=== PATIENT | male | born 1955 | race Caucasian/White ===

== ENCOUNTER 2021-04-07 16:08 | Emergency (ER) | payer MEDICARE ==
[~2021-04-07] VITALS: Ht 177.8 cm; Wt 96.2 kg
--- NOTE | ~2021-04-07 | EMS ---
[address] [address] EMS Patient Care Report Name: GIA SUGGS Room #: DEP MARCELLA Quezada#: [id number] Admission: 04/07/21 Attend Phys: Discharge: 04/07/21 Date of : 51 Report #: [id number] THIS REPORT FOR: //name// Report Transmitted: 04/10/2021 10:26 EMS Care Summary [place], [place]/[facility] Incident [id number] @ 04/07/2021 15:29 Incident Location 1 [facility] Patient GIA SUGGS Male, 65 Years 1955 Patient Address [address] [place] [address] Patient History Hypertension (HTN),Pacemaker/AICD, Patient Allergies No known allergies, Patient Medications None Reported, Chief Complaint syncoble episode Disposition Transported [place] Dispatch Reason Cardiac Arrest/ Transported To [facility] Narrative M39 dispatched to the indicated address for a cardiac arrest. M39 arrived on scene to find a 65 year old male lying down on a stretcher. Pt is CA&Ox4 with ABC intact and a GCs of 15. Medical team states that pt was very out of it and initially had no radial pulses. Pt is CA&Ox4 with ABC intact and a GCS of 15. [address] [address] EMS Patient Care Report Name: GIA SUGGS Room #: DEP [facility]#: [id number] Admission: 04/07/21 Attend Phys: Discharge: 04/07/21 Date of : 51 Report #: [id number] Pt appears to be pale and diaphoretic. Pt denies any chest pain or SOB. Pt states that he just had a pacemaker put in Thursday. Pt is assisted to EMS stretcher and secured. V/s are obtained as recorded and monitored throughout transport. Pt and stretcher are secured in the ambulance. 12 lead is preformed and shows pt to be in a sinus rhythm. IV access is established in pt left hand via 20 gauge catheter. Pt states that he would like to go to [facility]. Pt is explained the risks of not going to the closest appropriate hospital. Pt agrees to still be transported to [facility]. While en route to [facility] Pt b/p dropped and we diverted to [facility]. Pt was placed in the Trendelenburg position and NS was started at a rate of TKO. Hospital is contacted and advised of pt condition and treatments. No additional orders are requested. Pt is transported to the ED where a pt care report is given and care is handed off. M39 returned in service. Initial Vitals @15:57P: 96,BP: 80/64,CO: 4,SpO2: 95, @15:57P: 88,BP: 81/36,CO: 5,SpO2: 96, @15:54P: 106,CO: 3,SpO2: 96, @16:02P: 106,CO: 11,SpO2: 84, @15:59P: 102,BP: 68/48,CO: 6,SpO2: 94, @15:55P: 102,BP: 142/113,SpO2: 95, @15:41P: 77,BP: 122/70,CO: 3,SpO2: 95, @15:44P: 69,R: 18,Pain: 0/10,GCS: 15,CO: 1,SpO2: 95, Assessments @15:57MENTAL:Time Oriented,Place Oriented,Person Oriented,Event Oriented,SKIN:Pale,Diaphoresis,HEENT:Head/Face: No Abnormalities,Neck/Airway: No Abnormalities,LUNG SOUNDS:General: No Abnormalities,Left Upper: No Abnormalities,Right Upper: No Abnormalities,Left Lower: No Abnormalities,Right Lower: No Abnormalities,ABDOMEN:General: No Abnormalities,Left Upper: No Abnormalities,Right Upper: No Abnormalities,Left Lower: No Abnormalities,Right Lower: No Abnormalities,PELVIS//GI:No Abnormalities,EXTREMITIES:Left Arm: No Abnormalities,Right Arm: No Abnormalities,Left Leg: No Abnormalities,Right Leg: No Abnormalities,PULSE:NEURO:No Abnormalities, Impression Syncope / Fainting Procedures @15:38ALS AssessmentResponse: UnchangedSucceeded@15:50Saline Lock 10cc (20 ga) Site: Hand-LeftResponse: UnchangedSucceeded@15:4412-Lead ECG Timeline 15:28,Call Received 15:28,Dispatch Notified 15:29,Dispatched [address] [address] EMS Patient Care Report Name: GIA SUGGS Room #: ABEL Quezada#: [id number] Admission: 04/07/21 Attend Phys: Discharge: 04/07/21 Date of : 51 Report #: [id number] 15:29,En Route 15:33,On Scene 15:38,At Patient 15:38,ALS Assessment,Response: UnchangedSucceeded, 15:41,BP: 122/70 M,PULSE: 77,RR: R,SPO2: 95 Ox,ETCO2: ,BG: ,PAIN: ,GCS: , 15:44,12-Lead ECG, 15:44,BP: / M,PULSE: 69,RR: 18 R,SPO2: 95 Ox,ETCO2: ,BG: ,PAIN: 0,GCS: 15, 15:50,Saline Lock 10cc 20 ga Site: Hand-Left,Response: UnchangedSucceeded, 15:52,Depart Scene 15:54,BP: / M,PULSE: 106,RR: R,SPO2: 96 Ox,ETCO2: ,BG: ,PAIN: ,GCS: , 15:55,BP: 142/113 M,PULSE: 102,RR: R,SPO2: 95 Ox,ETCO2: ,BG: ,PAIN: ,GCS: , 15:57,BP: 80/64 M,PULSE: 96,RR: R,SPO2: 95 Ox,ETCO2: ,BG: ,PAIN: ,GCS: , 15:57,BP: 81/36 M,PULSE: 88,RR: R,SPO2: 96 Ox,ETCO2: ,BG: ,PAIN: ,GCS: , 15:59,BP: 68/48 M,PULSE: 102,RR: R,SPO2: 94 Ox,ETCO2: ,BG: ,PAIN: ,GCS: , 16:02,BP: / M,PULSE: 106,RR: R,SPO2: 84 Ox,ETCO2: ,BG: ,PAIN: ,GCS: , 16:04,At Destination 16:39,Call Closed Disclaimer v1.1 Copyright 2020 [employer] This EMS Care Summary contains data elements from the applicable legal record (which may be displayed differently). It is designed to provide pertinent information for the following purposes: continuity of care, clinical quality, and state data reporting. The complete legal record is available to ED staff and administrators of the receiving hospital in [facility]'s Patient Tracker. All data is provided "as is."
[2021-04-07] MEDS ORDERED: ALTACE10 MG PO (16:23)
[2021-04-07] MEDS ORDERED: LIPITOR 20 MG T20 M1 PO (16:23)
[2021-04-07] MEDS ORDERED: CARVEDILOL12.5 MG PO (16:24)
[2021-04-07] MEDS ORDERED: LORATIDINE 10 M10 M1 PO (16:24)
[2021-04-07] MEDS ORDERED: VAZALORE81 MG PO (16:24)
[2021-04-07 16:32] LABS: ABSOLUTE NEUTROPHILS 5.8 thou/uL (1.4-8.2); BASOPHILS 1.2 % (0.0-2.0); EOSINOPHILS 2.3 % (0.0-3.0); HEMATOCRIT 46.9 % (42.0-52.0); HEMOGLOBIN 15.5 gm/dL (14.0-18.0); LYMPHOCYTES 21.2 % (24.0-44.0); MCH 33.4 pg (26.0-34.0); MCHC 33.1 g/dL (28.0-37.0); MCV 100.9 fL (80.0-100.0); MONOCYTES 10.2 % (1.0-8.0); POLYS 65.1 % (36.0-66.0); RBC 4.65 mil/uL (4.50-6.00); RDW 16.8 % (10.5-14.5)
[2021-04-07 16:39] LABS: CALCIUM 8.1 mg/dL (8.5-10.1); CREATININE 1.3 mg/dL (0.7-1.3); POTASSIUM 3.8 mmol/L (3.5-5.1)
[2021-04-07 16:49] LABS: TOTAL BILIRUBIN 0.3 mg/dL (0.2-1.0); TOTAL PROTEIN 6.3 g/dL (6.4-8.2)
[2021-04-07 17:38] LABS: PLATELET COUNT 149 thou/uL (150-400)
[2021-04-07 17:39] LABS: ANISOCYTOSIS 1+
[2021-04-07 17:40] LABS: LARGE PLATELETS OCCASIONAL
[2021-04-07 18:04] VITALS: BP 117/74
--- NOTE | 2021-04-09 07:38 | EKG ---
[address] [employer] [place] [address] ELECTROCARDIOGRAM REPORT Name: GIA SUGGS [id number] Admission: 04/07/21 Attend Phys: Discharge: 04/07/21 Date of : 51 Report #: [id number] [facility] ED Test Date: 2021-04-07 Test Time: 16:23:51 Pat Name: GIA SUGGS Department: Room: Gender: Hides Inspector: nmd` : 1955 Requested By: Glen Laird Order Number: [id number] MD: Kristian Silva Measurements Intervals [place] Rate: 70 P: 44 ID: 58 QRS: 8 QRSD: 101 T: 47 QT: 434 QTc: 469 Interpretive Statements Sinus rhythm Short ID interval Inferior infarct, old No previous ECG available for comparison Electronically Signed On 04-09-2021 7:37:57 CDT by Kristian Silva [email or web address] <ELECTRONICALLY SIGNED> By: Kristian Silva MD, [facility] 04/09/21 0737 1623 1623 Kristian Silva MD, FACC /EPI
== END 2021-04-07 18:05 | disposition home or self-care (01) ==
LOC: ER 16:08
PROVIDERS: Emergency Medicine
DX: T67.5XXA Heat exhaustion, unspecified, initial encounter (principal); E86.0 Dehydration; R53.1 Weakness; Z79.899 Other long term (current) drug therapy; Z79.82 Long term (current) use of aspirin; X30.XXXA Exposure to excessive natural heat, initial encounter; Y93.89 Activity, other specified; Y92.89 Other specified places as the place of occurrence of the external cause; Y99.8 Other external cause status